=== PATIENT | male | born 1950 | race African-American/Black ===

== ENCOUNTER → 2018-08-01 | Outpatient (CLI) | payer BC, OTHER ==
--- NOTE | 2018-08-01 16:29 | 2DMMODE ---
[facility] [place] [address] 2 D/M-MODE ECHOCARDIOGRAM Name: ANDERSONSHRUTI Room #: REG [facility]#: [id number] ������������� Admission: 08/01/18 ������������� Attend Phys: Huan Chavira MD Discharge: ��� ������������� ��� Date of : 50 Date of Service: 08/01/18 1628 �� Report #: [id number] �������� ��������������������������������������������[id number] THIS REPORT FOR: //name// APPROVED REPORT Study performed: 08/01/2018 12:47:32 EXAM: Comprehensive 2D, Doppler, and color-flow Echocardiogram Patient Location: Out-Patient Room #: Echo lab 2 Status: routine BSA: 2.08 HR: 61 bpm BP: 136/84 mmHg Rhythm: NSR Other Information Study Quality: Good Indications Dyspnea Hypertension/HDD 2D Dimensions RVDd: 33.20 mm IVSd: 13.99 (7-11mm) LVOT Diam: 20.95 (18-24mm) LVDd: 49.95 mm PWd: 13.37 (7-11mm) Ascending Ao: 31.90 (22-36mm) LVDs: 32.19 (25-40mm) Aortic Root: 35.12 mm IVC: 15.00 mm Volumes Left Atrial Volume (Systole) Single Plane 4CH: 35.05 mL Single Plane 2CH: 36.01 mL LA ESV Index: 20.00 mL/m2 Aortic Valve AoV Peak Narayan.: 1.39 m/s AO Peak Gr.: 7.72 mmHg LVOT Max P.29 mmHg LVOT Max V: 1.15 m/s UJ Vmax: 2.85 cm2 Mitral Valve E/A Ratio: 1.2 MV Decel. Time: 172.04 ms [facility] [address] [place] [address] 2 D/M-MODE ECHOCARDIOGRAM Name: ANDERSONSHRUTIADRIAN GOLDSMITH Room #: REG [facility]#: [id number] ������������� Admission: 08/01/18 ������������� Attend Phys: Huan Chavira MD Discharge: ��� ������������� ��� Date of : 50 Date of Service: 08/01/18 1628 �� Report #: [id number] �������� ��������������������������������������������[id number] MV E Max Narayan.: 0.83 m/s MV A Narayan.: 0.71 m/s MV PHT: 49.89 ms IVRT: 129.18 ms Pulmonary Valve PV Peak Narayan.: 0.79 m/s PV Peak Gr.: 2.50 mmHg Pulmonary Vein P Vein S: 0.71 m/s P Vein A: 0.27 m/s P Vein D: 0.57 m/s P Vein A Dur.: 120.0 msec P Vein S/D Ratio: 1.25 Left Ventricle The left ventricle is normal size. There is normal LV segmental wall motion. Mild concentric left ventricular hypertrophy. Left ventricular systolic function is normal. The left ventricular ejection fraction is within the normal range. LVEF is 55-60%. Grade II - pseudonormal filling dynamics. Right Ventricle The right ventricle is normal size. The right ventricular systolic function is normal. Atria The left atrium size is normal. The right atrium size is normal. Aortic Valve The aortic valve is normal in structure. No aortic regurgitation is present. There is no aortic valvular stenosis. Mitral Valve The mitral valve is normal in structure. There is no mitral valve regurgitation noted. No evidence of mitral valve stenosis. Tricuspid Valve The tricuspid valve is normal in structure. There is no tricuspid valve regurgitation noted. Pulmonic Valve The pulmonary valve is normal in structure. There is no pulmonic valvular regurgitation. Great Vessels The aortic root is normal in size. IVC is normal in size and [facility] [address] [place] [address] 2 D/M-MODE ECHOCARDIOGRAM Name: SHRUTI ANDERSON Room #: REG [facility] [id number] ������������� Admission: 08/01/18 ������������� Attend Phys: Huan Chavira MD Discharge: ��� ������������� ��� Date of : 50 Date of Service: 08/01/18 1628 �� Report #: [id number] �������� ��������������������������������������������[id number] collapses >50% with inspiration. Pericardium There is no pericardial effusion. <Conclusion> The left ventricle is normal size. Mild concentric left ventricular hypertrophy. Left ventricular systolic function is normal. Grade II - pseudonormal filling dynamics. The right ventricle is normal size. The left atrium size is normal. The aortic valve is normal in structure. There is no mitral valve regurgitation noted. There is no tricuspid valve regurgitation noted. ��������������������������������������������� <ELECTRONICALLY SIGNED> ���������������������������������������� By: Huan Chavira MD ��������������������������������������������� 08/01/18 1628 1628 1628 Huan Chavira MD /INF
--- NOTE | 2018-08-01 16:35 | EXE ---
[facility] [place] [address] STRESS ECHOCARDIOGRAM Name: MONICASHRUTI AGUS Room #: REG [facility]#: [id number] ������������� Admission: 08/01/18 ������������� Attend Phys: Huan Chavira MD Discharge: ��� ������������� ��� Date of : 50 Date of Service: 08/01/18 1635 �� Report #: [id number] �������� ��������������������������������������������[id number] THIS REPORT FOR: //name// APPROVED REPORT Study performed: 08/01/2018 13:19:17 Exam: Stress Echocardiogram Indication: Dyspnea , Hypertension Patient Location: Out-Patient Stress Nurse: Neelam Ceja RN Room #: Echo lab 2 Status: routine Ht: 6 ft 2 in HR: 61 bpm BP: 136/84 mmHg Rhythm: NSR Medical History Medical History: HTN Allergies: No known drug allergies Cardiac Risk Factors: HTN Exercise History: Physically active Procedure The patient underwent an Exercise Stress Test using the James Protocol. Blood pressure, heart rate, and EKG were monitored. An Echocardiogram was performed by casting technician in four stages in quad fashion. At peak stress, four selected images were obtained and placed side by side with resting images for comparison. Stress Test Details Stress Test: Exercise stress testing was performed using a James protocol. HR Resting HR: 67 bpm Max Heart Rate (APMHR): 153 bpm Max HR Achieved: 151 bpm Target HR (85% APMHR): 130 bpm % of APMHR: 98 Recovery HR: 85 bpm HR response to stress: Normal HR response to stress BP Resting BP: 136/84 mmHg Max BP: 164/94 mmHg Recovery BP: 158/90 mmHg [facility] [address] [place] [address] STRESS ECHOCARDIOGRAM Name: SHRUTI ANDERSON Room #: REG [facility]#: [id number] ������������� Admission: 08/01/18 ������������� Attend Phys: Huan Chavira MD Discharge: ��� ������������� ��� Date of : 50 Date of Service: 08/01/18 1635 �� Report #: [id number] �������� ��������������������������������������������[id number] BP response to stress: Normal blood pressure response to stress. ECG Resting ECG: Sinus Rhythm Stress ECG: Sinus Rhythm, nonspecific ST-T abnormalities ST Change: Equivocal Clinical Reason for Termination: Maximal effort Exercise duration: 9 min 26 sec Highest Stage Achieved: Stage 4: 4.2 mph at 16% grade. Exercise capacity: 11.4 METs Overall Exercise Capacity for Age: Good Pre-Stress Echo The resting Echocardiogram showed normal left ventricular contractility with an estimated Ejection Fraction of about >55%. Normal wall motion in all segments on baseline images. Post-Stress Echo The stress Echocardiogram showed normal left ventricular contractility with an estimated Ejection Fraction of about >70%. Normal augmentation of wall motion in all segments on post stress images. Clinical Normal augmentation of myocardial wall segments using a 17 segment model. No clinical evidence for ischemia. Conclusion Clinical Response: Non-ischemic Exercise Capacity: Above average Stress ECG Response: Equivocal Stress Echo Images: Non-ischemic The left ventricle is normal in size and wall thickness in both the rest and stress images. No prior study available for comparison. Other Information Study Quality: Good <Conclusion> [facility] [place] [address] STRESS ECHOCARDIOGRAM Name: MONICASHRUTIADRIAN GOLDSMITH Room #: REG [facility]#: [id number] ������������� Admission: 08/01/18 ������������� Attend Phys: Huan Chavira MD Discharge: ��� ������������� ��� Date of : 50 Date of Service: 08/01/181634 �� Report #: [id number] �������� ��������������������������������������������[id number] The left ventricle is normal in size and wall thickness in both the rest and stress images. ��������������������������������������������� <ELECTRONICALLY SIGNED> ���������������������������������������� By: Huan Chavira MD ��������������������������������������������� 08/01/18 1635 34 34 Huan Chavira MD /INF
== END ==
LOC: CV 10:21
DX: I11.9 Hypertensive heart disease without heart failure (principal)